=== PATIENT | male | born 1960 | race Hispanic/Latino ===

== ENCOUNTER 2020-04-26 20:21 | Emergency (ER) | payer MEDICARE ==
[~2020-04-26] VITALS: Ht 165.1 cm; Wt 70.8 kg
[2020-04-26] MEDS ORDERED: IBUPROFEN 600 MG TAB PO STA (22:58)
[2020-04-26] MEDS ORDERED: IBUPROFEN600 MG PO (23:05)
[2020-04-26] MEDS ORDERED: ULTRAM50 MG PO (23:05)
[2020-04-26] MEDS ORDERED: IBUPROFEN 600 MG TAB ONE (23:07)
--- NOTE | 2020-04-26 23:09 | Emergency Department Note ---
History of Present Illnes History of Present Illness Chief Complaint: left ankle pain s/p inversion History of Present Illness This is a 59 year old male . Historian: Patient Arrival Mode: Car History limited by: condition of the patient (normal) Data Entry Email Processor Required: No Onset (how long ago): hour(s) (3) Location: left ankle Quality: sharp Radiation: Reports non-radiation Severity: moderate Onset quality: sudden Duration (how long): hour(s) (2) Timing of current episode: constant Progression: worsening Chronicity: new Context: Reports trauma/injury; Denies recent illness, Denies recent surgery, Denies recent immobilization, Denies recent travel, Denies new medications, Denies hx of DVT/PE, Denies non- compliance w/ medications Relieving factors: rest Exacerbating factors: movement Associated symptoms: Reports denies other symptoms Treatments prior to arrival: none Past Medical/Family History Physician Review I have reviewed the patient's past medical and family history. Any updates have been documented here. Past Medical History Recent Fever: No Clinical Suspicion of Infectio: No New/Unexplained Change in Ment: No Past Medical History: Hypertension, Diabetes, NM, ESRD Past Surgical History: Pacer/AICD Social History Smoking Cessation: Never Smoker Counseling Performed: No Alcohol Use: None Any Illegal Drug Use: No Physically hurt or threatened: No Other Any Pre-Existing Lines (PICC,: Yes (AV GRAFT LEFT) Review of Systems Review of Systems Constitutional: Reports no symptoms EENTM: Reports no symptoms Cardiovascular: Reports no symptoms Respiratory: Reports no symptoms Gastrointestinal: Reports no symptoms Genitourinary: Reports no symptoms Musculoskeletal: Reports as per HPI Integumentary: Reports no symptoms Neurological: Reports no symptoms Psychological: Reports no symptoms Endocrine: Reports no symptoms Hematological/Lymphatic: Reports no symptoms Review of other systems: All other systems negative Physical Exam Related Data Allergies: Coded Allergies: Sulfa (Sulfonamide Antibiotics) (Verified Allergy, Unknown, 04/26/20) Triage Vital Signs Vital Signs Date Time Temp Pulse Resp B/P (MAP) Pulse Ox O2 Delivery O2 Flow Rate FiO2 04/26/20 21:20 98.4 73 18 167/78 100 Room Air Vital signs reviewed: Yes Physical Exam CONSTITUTIONAL Constitutional: Present well-developed, Present well-nourished HENT HENT: Present normocephalic, Present atraumatic, Present oropharynx clear/moist, Present nose normal HENT L/R: Present left ext ear normal, Present right ext ear normal EYES Eyes: Reports PERRL, Reports conjunctivae normal NECK Neck: Present ROM normal, Present supple PULMONARY Pulmonary: Present effort normal, Present breath sounds normal CARDIOVASCULAR Cardiovascular: Present regular rhythm, Present heart sounds normal, Present capillary refill normal, Present normal rate GASTROINTESTINAL Abdominal: Present soft, Present nontender, Present bowel sounds normal GENITOURINARY Genitourinary: Present exam deferred SKIN Skin: Present warm, Present dry MUSCULOSKELETAL Musculoskeletal: Present tenderness (left ankle), Present swelling, Present other (decrease farom, +nvi) NEUROLOGICAL Neurological: Present alert, Present oriented x 3, Present no gross motor or sensory deficits PSYCHOLOGICAL Psychological: Present mood/affect normal, Present judgement normal Results Imaging Imaging results reviewed: Yes Impressions left ankle xray neg Critical Care Time Comments [place] [employer] overdose risk [id number] Assessment & Plan Medical Decision Making MDM SEE BELOW Assessment & Plan Final Impression: (1) Left ankle sprain (2) Sprain of left foot Depart Disposition: HOME, SELF-CARE Last Vital Signs Date Time Temp Pulse Resp B/P (MAP) Pulse Ox O2 Delivery O2 Flow Rate FiO2 04/26/20 21:20 98.4 73 18 167/78 100 Room Air Home Meds Active Scripts Tramadol Hcl (ULTRAM) 50 Mg Tablet, 50 MG PO Q6H PRN for MODERATE PAIN (4-6), #15 TAB TAKE AFTER IBUPROFEN TO CONTROL PAIN IF NEED BE Prov:HOMERO BARNHART 04/26/20 Ibuprofen (IBUPROFEN) 600 Mg Tablet, 600 MG PO Q6H PRN for MODERATE PAIN (4-6), #40 TAB Prov:HOMERO BARNHART 04/26/20 Medications in the ED Ibuprofen 600 mg ONCE STAT PO ; Start 04/26/20 at 22:58; Stop 04/26/20 at 22:59; Status UNV HOMERO BARNHART Apr 26, 2020 23:09
--- NOTE | 2020-04-27 00:09 | Diagnostic Imaging Report ---
LEFT ANKLE 3VIEW LT - HOPD - 3 views HISTORY: Pain. COMPARISON: None available. FINDINGS: Bones: Apparent cortical discontinuity at the posterior calcaneus. Otherwise, no acute fracture of the ankle. Osseous alignment is within normal limits. Joints: The joint spaces are well-maintained. Soft tissues: Vascular calcifications. IMPRESSION: Apparent cortical discontinuity at the posterior calcaneus. Findings could represent old trauma, but acute fracture is not excluded. Correlate for point tenderness to determine need for CT evaluation. Otherwise, no acute fracture of the ankle. Signed by: Anam Bautista MD on 04/27/2020 12:06 AM
--- OUTSIDE RECORDS SUMMARY | 2020-04-27 00:17 | XMS REPORT | Clinical Summary ---
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 Sulfa (Sulfonamide Rash, Itching Medium 04/23/2016 Antibiotics) Medications End Date Status Medication Sig Dispensed Refills Start Date Active naftifine (NAFTIN) 1 % Apply to 90 g 2 topical creamIndications: affected area 1 OM (onychomycosis), Tinea daily. pedis Active blood glucose meter Use as 1 Kit 0 (PRECISION XTRA directed.. 4 GLUCOMETER)Indications: Diabetes mellitus Active blood glucose test Check glucose 100 Each 10 05/06 stripsIndications: twice daily 4 Diabetes mellitus Active atorvastatin (LIPITOR) 40 Take 1 tablet 30 tablet 10 mg tabletIndications: by mouth at 5 Hyperlipidemia LDL goal < bedtime 100 nightly For cholesterol. Active blood glucose (PRECISION Check glucose 100 Each 5 XTRA TEST STRIPS) test 2 times daily 5 stripsIndications: Diabetes mellitus type II, controlled Active blood glucose test 2 times 50 Each 3 02/05/10 03 stripsIndications: weekly to 6 Diabetes mellitus due to test blood underlying condition with sugar. hyperglycemia Active carvedilol (COREG) 3.125 Take 1 tablet 180 tablet 3 mg tabletIndications: by mouth 2 8 Renovascular hypertension times daily (with meals) For blood pressure. Romanian label. Active blood glucose Use as 1 Kit 0 meterIndications: Type II directed.. 8 diabetes mellitus, well controlled Active lancets 28 Use 2 times 100 Each gaugeIndications: Type II weekly as 8 diabetes mellitus, well directed. controlled Active blood glucose test 2 times 50 Each 01 stripsIndications: Type weekly Use 2 8 II diabetes mellitus, times weekly well controlled (once per day on Mon,Thurs) to test blood sugar. Active DILTIAZEM HCL COATED Take 180 mg 0 BEADS 180 mg 24 hr by mouth 2 capsule times daily. Active apixaban (ELIQUIS) 2.5 mg Take 2.5 mg 0 tablet by mouth 2 times daily. 10/08/2019 Discontinued (Therapy comple jocelin) white petrolatum Apply to 30 g 0 (VASELINE) topical affected area 6 jellyIndications: Macular 3 times daily erythematous rash as needed for dry skin. 10/08/2019 Discontinued (Therapy comple jocelin) sevelamer carbonate Take 2 180 tablet 10 (RENVELA) 800 mg tablet tablets by 6 mouth 3 times daily with meals. Therapeutic substitution for Renagel per p &t 10/08/2019 Discontinued (Alternate ther apy) amLODIPine (NORVASC) 10 Take 1 tablet 90 tablet 3 mg tabletIndications: by mouth 8 Renovascular hypertension daily For blood pressure. Active Problems Problem Noted Date Pure hypercholesterolemia 12/20/2016 Type II diabetes mellitus, well controlled 7 ESRD (end stage renal disease) on dialysis 6 Renovascular hypertension 05/08/2016 Diabetes type 2, uncontrolled 04/27/2016 Essential hypertension 04/27/2016 Hyperlipidemia 04/27/2016 Anemia of chronic disease 04/27/2016 Proliferative diabetic retinopathy with macular edema associated with type 02/06/2016 2 diabetes mellitus Anemia of renal disease 10/27/2015 Anemia of chronic renal failure, stage 5 09/14/2015 TRD (traction retinal detachment) 06/02/2015 History of vitrectomy 06/02/2015 Nuclear sclerotic cataract of both eyes 06/02/2015 Vitamin D deficiency 12/27/2014 Diabetes mellitus 06/17/2014 Vitreous hemorrhage 06/17/2014 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 014 HTN (hypertension) 01/12/2011 Hyperlipidemia with target LDL less than 100 011 Plantar fasciitis 12/13/2010 Proteinuria Secondary hyperparathyroidism, renal Paroxysmal atrial fibrillation Exfoliative dermatitis Hemodialysis catheter malfunction Complications, dialysis, catheter, [facility] anical Resolved Problems Problem Noted Date Resolved Date Preop exam for internal medicine 01/31/201610/08 Diabetes mellitus due to underlying condition with hypergly cemia 01/11/2016 10/08/2019 Proliferative diabetic retinopathy 06/17/201402/2020 ESRD (end stage renal disease) 10/08/2019 Encounters Care Team Description Date Type Specialty Chichi Mon MD Macular edema (Primary Dx); ESRD (end stage renal disease) on dialysis; Paroxysmal atrial fibrillation; H/O diabetes mellitus 10/08/2019 Office Visit Family Practice after 04/27/2019 Immunizations Name Administration Dates Next Due Influenza <Unspecified> 04/02/2019 Influenza Vaccine 07/14/2015, 07/01/2014 PPV 23 Pneumococcal 12/13/2010 Polysaccaride Tdap Tetanus, diphtheria, 11/29/2014 acellular pertussis Vaccine Family History Medical History Relation Name Comments Family Medical History Other Unknown Relation Name Status Comments Brother Alive 2 Father (Age 75) Mother (Age 80) Other Sister Alive 1 Social History Date Tobacco Use Types Packs/Day Years Used Never Smoker Smokeless Tobacco: Never Used Drinks/Week oz/Week Comments Alcohol Use 0 Standard drinks or equivalent 0.0 No Food Insecurity Answer Date Recorded Within the past 12 months, you worried that your Never everardo e 05/01/2018 food would run out before you got money to buy more. Within the past 12 months, the food you bought Never true 05/01/2018 just didn't last and you didn't have mo efrain to get more. Sex Assigned at Date Recorded Not on file Industry Job Start Date Occupation Not on file Not on file Not on file Travel End Travel History Travel Start No recent travel history available. Last Filed Vital Signs Reading Time Taken Comments Vital Sign 142/70 10/08/2019 10:11 AM [facility] Manual BP R arm Blood Pressure 72 10/08/2019 9:48 AM [facility] Pulse 36.9 C (98.4 F) 10/08/2019 9:48 AM [facility] Temperature - - Respiratory Rate - - Oxygen Saturation - - Inhaled Oxygen Concentration 70.5 kg (155 lb 8 oz) 10/08/2019 9:48 AM [facility] Weight 158.5 cm (5' 2.4") 10/08/2019 9:48 AM [facility] Height 28.08 10/08/2019 9:48 AM [facility] Body Mass Index Plan of Treatment Health Maintenance Due Date Last Done Comments DM Retinal Exam (Yearly) 03/27/2019 03/27/2018, 01/07/2017, 10/24/2016, Additional history exists Colonoscopy 3yr 11/01/2019 10/31/2016 (Previously completed - External) DM Foot Exam (Yearly) 10/08/2020 10/08/2019, 01/31/2018, 11/29/2014 DM HGBA1C (Yearly) 10/08/2020 10/08/2019, 02/07/2018, 02/14/2017, Additional history exists DM Microalbumin Urine 10/08/2020 10/08/2019, Scrn (Yearly) 10/08/2019, 05/01/2018, Additional history exists Implants Device Identifier Shelf Expiration Date Model / Serial / L ot Implanted Type Area Manufactur er 05/05/2018 [id number] / [id number] / na Implant Eye Iol Intraoccular Lens Implant Left: Eye(s) ADVANCED (Ppk-3000-01) - [id number] eye MEDICAL Implanted: Qty: 1 on 02/22/2016 by [employer] Tammi Montenegro MD at [facility] 05/03/2015 / [facility] Left: Eye(s) Implanted: Qty: 1 on 01/21/2015 at [facility] Procedures Comments Procedure Name Priority Date/Time Associated Diag nosis HEMOGLOBIN A1C Routine 10/08/2019 H/O diabetes me llitus 11:06 AM [facility] LIVER PROFILE Routine 10/08/2019 H/O diabetes me llitus 11:06 AM [facility] LIPID PROFILE Routine 10/08/2019 H/O diabetes me llitus 11:06 AM [facility] DIABETIC FOOT EXAM Routine 10/08/2019 H/O diabete s mellitus 10:26 AM [facility] after 04/27/2019 Results * Hemoglobin A1C (10/08/2019 11:06 AM [facility]) Hemoglobin A1c 6.0 4.3 - 6.1 % [facility] Estimated 126 (H) 70 - 110 mg/dL [facility] Average Glucose LAB[facility]ORY Specimen Blood Performing Organization Address [facility] one Number [facility] [address] [place] [address] [phone] * Liver Profile (10/08/2019 11:06 AM [facility]) [facility] Total Protein 7.7 6.0 - 8.3 g/dL [facility] Bilirubin, 0.7 0.2 - 1.2 mg/dL [facility] Total [facility] Alkaline 157 (H) 34 - 104 U/L [facility] Phosphatase [facility] AST 18 13 - 39 U/L [facility] Direct 0.2 0.0 - 0.2 mg/dL [facility] Bilirubin [facility] ALT 13 7 - 52 U/L [facility] Albumin 4.4 4.2 - 5.5 g/dL [facility] Specimen Blood Performing Organization Address [facility] one Number [facility] [address] [place] [address] * Lipid Profile (10/08/2019 11:06 AM [facility]) [facility] Cholesterol 119.0 <=200.0 mg/dL [facility] Triglyceride 105 <150 mg/dL [facility] HDL 37.0 See Reference Range [facility] Narrative. mg/dL [facility] LDL 61 <100 mg/dL [facility] Comment: [facility] Optimal: < 100.0 mg/dL Near Optimal: 120-129 mg/dL Borderline: 130-159 mg/dL High: 160-189 mg/dL Very High: >=190 mg/dL Patient No [facility] Fasting? LABORATORY Specimen Blood Narrative Performed At Patient is not fasting. For a triglyceride result gre ater than 440 mg/dL, [facility] consider re-testing when the patient is in a fasting state. Performing Organization Address [facility] one Number [facility] [address] [place] [address] * DIABETIC FOOT EXAM (10/08/2019 10:26 AM [facility]) Narrative Performed At Chichi Mon MD 10/08/2019 11: 03 AM Diabetic Foot Exam was performed at 10/08 10:52 AM. Right foot sensation is normal, right foot pulses are absent, right foot appearance is abnormal. Left foot sensation is n ormal, left foot pulses are absent, left foot appearance is abnormal. after 04/27/2019 Insurance Type Payer Benefit Subscriber ID Effective Phone Address Plan / Dates Group MEDICARE MEDICARE xxxxxxxxxxx 2016- [phone] [address] PART A & B Present [id number] [place] [phone] Advance Directives Date Inactivated Comments Code Status Date Activated 07/11/2016 10:18 PM Full Code 07/11/2016 10:00 AM 05/01/2016 5:45 PM Full Code 04/18/2016 11:32 AM 01/11/2016 6:56 PM Full Code 01/10/2016 12:13 AM 12/12/2015 5:47 PM Full Code 12/10/2015 5:06 AM 08/20/2015 2:46 PM Full Code 08/19/2015 4:36 AM
--- OUTSIDE RECORDS SUMMARY | 2020-04-27 00:18 | XMS REPORT | Clinical Summary ---
Author Author MARY [facility] Organization [facility] Address Unknown Phone Unavailable Care Team Providers Care Airflight Attendants Supervisor Name Role Phone Chichi Mon PCP Allergies Comments Active Allergy Reactions Severity Noted Date Sulfa (Sulfonamide Rash Low 12/11/2016 Antibiotics) Medications End Date Status Medication Sig Dispensed Refills Start Date Active apixaban (ELIQUIS) 2.5 mg Take 2.5 mg 0 Tab tablet by mouth 2 (two) times daily. Active dilTIAZem (CARDIZEM CD) Take 180 mg 0 180 MG 24 hr capsule by mouth 2 (two) times daily. Active carvediloL (COREG) 12.5 Take 12.5 mg 0 MG tablet by mouth 2 (two) times daily with breakfast and dinner. 03/17/2020 Discontinued carvedilol (COREG) 3.125 Take 12.5 mg 0 MG tablet by mouth 2 (two) times daily with breakfast and dinner . 03/17/2020 Discontinued amiodarone (PACERONE) 200 Take 200 mg 0 MG tablet by mouth daily. 03/17/2020 Discontinued acetaminophen-codeine Take 1 tablet 0 (TYLENOL #3) 300-30 mg by mouth per tablet every 4 (four) hours as needed for Pain. 03/17/2020 Discontinued aspirin 81 MG EC tablet Take 81 mg by 0 mouth daily. Active Problems Problem Noted Date Pre-transplant evaluation for ESRD (end stage renal d isease) 03/19/2017 Encounters Care Team Description Date Type Specialty Jovita Vasquez 04/01/2020 Documentation Transplant Laurie Salas MD ESRD (end stage renal disease) on dialys is (HCC); Awaiting transplantation of kidney; Mitral annular calcification; Pericardial effusion; Pleural effusion 03/17/2020 Hospital Cardiology Encounter Laurie Salas MD ESRD (end stage renal disease) on dialys is (HCC); Awaiting transplantation of kidney 03/17/2020 Hospital Radiology Encounter Laurie Salas MD Pandya, Aashish Mahesh, MD ESRD (end stage renal disease) (HCC) (Pr imary Dx) 03/17/2020 Evaluation Transplant Bharati Londono MD 03/17/2020 Evaluation Transplant Chichi 03/17/2020 Outside Orders Radiology Natalia Campos COVID19 screening 03/16/2020 Telephone Transplant Jovita Vasquez 03/16/2020 Documentation Transplant Katina Luong RN ESRD (end stage renal disease) on dialys is (HCC) (Primary Dx); Awaiting transplantation of kidney; Mitral annular calcification; Pericardial effusion; Pleural effusion 01/29/2020 Orders Only Transplant Jovita Vasquez PSA 12/17/2019 Telephone Transplant Jovita Vasquez 12/17/2019 Documentation Transplant Sim, Na Y 12/09/2019 Documentation Transplant Katina Luong, MAGDALENA Awaiting transplantation of kidney (Prim desmond Dx) 09/15/2019 Orders Only Transplant after 04/27/2019 Social History Date Tobacco Use Types Packs/Day Years Used Never Smoker Smokeless Tobacco: Never Used Alcohol Use Drinks/Week oz/Week Comments No Sex Assigned at Date Recorded Not on file Industry Job Start Date Occupation Not on file Not on file Not on file Travel End Travel History Travel Start No recent travel history available. Last Filed Vital Signs Time Taken Vital Sign Reading 03/17/2020 1:38 PM CDT Blood Pressure 179/94 03/17/2020 1:38 PM CDT Pulse 64 03/17/2020 1:38 PM CDT Temperature 36.6 C (97.8 F) 03/17/2020 1:38 PM CDT Respiratory Rate 16 03/17/2020 1:38 PM CDT Oxygen Saturation 100% - Inhaled Oxygen - Concentration 03/17/2020 1:38 PM CDT Weight 69.2 kg (152 lb 9.6 oz) 03/17/2020 1:38 PM CDT Height 160 cm (5' 3") 03/17/2020 1:38 PM CDT Body Mass Index 27.03 Plan of Treatment Health Maintenance Due Date Last Done Comments PNEUMOCOCCAL VACCINE 2-64 1966 YEARS AT RISK (1 of 3 - PCV13) MEDICARE ANNUAL WELLNESS 07/04/2017 (YEAR 2 or FIRST YEAR if no IPPE) INFLUENZA VACCINE (#1) 2020 LIPID PANEL 10/08/2024 10/08/2019, 017 COLON CANCER SCREENING 02/04/2027 02/04/2017 COLONOSCOPY Procedures Comments Procedure Name Priority Date/Time Associated Diag nosis 2D ECHO W/ DOPPLER Routine 03/17/2020 ESRD (end s tage renal (CW/PW/COLOR) 2:11 PM CDT disease) on dialysi s (HCC) Awaiting transplantation of kidney Mitral annular calcification Pericardial effusion Pleural effusion US ABDOMEN COMPLETE Routine 03/17/2020 ESRD (end stage renal 1:29 PM CDT disease) on dialysis (HCC) Awaiting transplantation of kidney FLOW PRA CLASS II WITH Routine 03/17/2020 Awaitin g transplantation REFLEX TO ANTIBODY 12:35 PM CDT of kidney SPECIFICITY FLOW PRA CLASS I WITH Routine 03/17/2020 Awaiting transplantation REFLEX TO ANTIBODY 12:35 PM CDT of kidney SPECIFICITY after 04/27/2019 Results * 2D Echo W/Doppler(CW/PW/Color) (03/17/2020 2:11 PM CDT) Ejection Fraction [facility] ECHO HEARTLAB [facility] Specimen Narrative Performed At Transthoracic Echocardiography Report (TTE) [facility] ECH O HEARTLAB Demographics [facility] Patient Name ISRAEL ALEMAN, Date of Study 03/17/2020 KARLEE Garrett [id number] GenderMale Visit Number [id number] RaceUnk nown [id number] Room Number Number Date of Birth1960 Referring Physician Maritza Matthews Age59 year(s) Sales Engagement Manager Tamika leger Physician Procedure Type of Study TTE procedure:2DECHO W DO PPLER(CW/PW/COLOR) (Routine) Indications:Pre-surgical evaluation of organ transplant. Clinical History Afib, CMP, Dm, ESRD, HLD, HTN, L/R Cath (03/19/17) Contrast Medium: New Item. Height: 63 inches Weight: 68.95 kg (152 lbs) BSA: 1.72 m^2 BMI: 26.93 kg/m^2 HR: 84 bpm BP: 178/84 mmHg Summary 1. The left ventricle is chamber size ( by vol index) is severely enlarged. Mild concentric LV hypertrophy. All of the LV segments contract normally . LVEF by Fontana's method of disk assess ment is normal (55-60%) . LA size is moderately enlarged (42-48 ml/m2) . 2. RV chamber size is mildly enlarged. Global RV systolic function is normal. Estimated peak systolic PA pres sure is 45-50 mmHg (mild pulmonary hypertension) . 3. Moderate mitral annular calcificatio n. Mild mitral regurgitation. Previous Study In comparison with the prior exam 2016 the following changes are noted: mildly enlarged RV with moderately rais ed pulmonary pressures. Signature Findings Left Ventricle The left ventricle is chamber size (by vol index) is severely enlarged (male - LVED vol >100ml/m2). Mild concentric LV hypertrophy. All of the LV segments contract normally . LVEF by Fontana's method of disk assessment is normal (55-60%) . Degree of diastolic dysfunction (LAP assessment) is inconclusive due to mitral annular calcification . Left AtriumLA s ize is moderately enlarged (42-48 ml/m2) . Right VentricleRV chamb er size is mildly enlarged . Global RV systolic function is normal . Right Atrium RA siz e is mildly dilated. Atrial SeptumNormal interatrial septum by available views. Aortic Valve Mild A oV cusp thickening. No evidence of aortic regurgitation. Mitral Valve Mild M V leaflet thickening. Mild mitral regurgitation. Moderate mitral annular calcification. Mild mitral regurgitation. Tricuspid ValveMild tri cuspid regurgitation. Estimated peak systolic PA pressure is 45-50 mmHg (mild pulmonary hypertension) . Pulmonic Valve Normal P V structure and function by limited views and Doppler. Aorta Aortic root size (SInus of Valsalva diameter) is normal . PericardiumNo s ignificant pericardial effusion is visualized. IVC/SVC/PA/PV/PleuralThe estimated RA pressure by IVC dynamics 11-15mmHg . Chambers/Structures Left Atrium LA Volume: 72.03 ml LA Area: 23.14 cm^2 LA Vol. Index: 42 ml/m^2 Left Ventricle LVIDd: 4.7 cm LVEDV:100.24 ml LVIDs: 2.91 cm LVESV:24.68 ml LV Septum Diastolic: 1.12 cm LVEF 2D Cube: 75.6 % LV PW Diastolic: 1.14 cm LVEDV Fontana's:72.37 ml LV FS: 38.1 % LVESV Fontana's:29.99 ml LVEF Fontana's: 58.6 % LVEDVI: 42 ml/m^2 LVESVI: 17 ml/m^2 LVOT Diameter: 1.87 cm LVEF: 75.4 % Right Atrium RA Vol. (Sngl Plane): 50.03 ml Right Ventricle TAPSE: 1.62 cm Aorta Ao Root S of Tiffanie.: 3.53 cm Doppler/Quantitative Measurements Mitral Valve MV Peak E-Wave: 1.73 m/s MV Peak A-Wave: 0.64 m/s E/A Ratio: 2.71 Mean Velocity: 0.81 m/s Peak Gradient: 12.01 mmHg Mean Gradient: 3.17 mmHg Deceleration Time: 229.5 msec Area (continuity): 1.64 cm^2 MV VTI: 39.49 cm MV Fly. Peak: 1.58 m/s Aortic Valve Peak Velocity: 1.45 m/s Mean Velocity: 0.95 m/s Peak Gradient: 8.39 mmHg Mean Gradient: 4.08 mmHg AV Area (continuity): 2.03 cm^2 AV VTI: 31.88 cm AV DVI: 0.74 LVOT Peak Velocity: 0.93 m/s Peak Gradient: 3.44 mmHg Mean Velocity: 0.63 m/s Mean Gradient: 1.83 mmHg LVOT Diameter: 1.87 cm LVOT VTI: 23.54 cm LVOT Area: 2.75 cm^2 LVOT SV:64.62 ml LVOT CO: 5.43 l/min LVOT CI: 3.16 l/min/m^2 Tricuspid Valve TR Velocity: 2.99 m/s TR Gradient: 35.87 mmHg Procedure Note Interface, External Ris In - 03/17/2020 4:00 PM CDT Transthoracic Echocardiography Report (TTE) Demographics Patient Name ISRAEL ALEMAN, Date of Study 03/17/2020 WILLIE Gender Male Visit Number [id number] Race Unknown Room Number Number Date of 1960 Referring Physician Maritza Matthews Age 59 year(s) Sales Engagement Manager Tamika Pizarro Interpreting Tashi Ontiveros Physician Procedure Type of Study TTE procedure:2DECHO W DOPPLER(CW/PW/COLOR) (Routine) Indications:Pre-surgical evaluation of organ transplant. Clinical History Afib, CMP, Dm, ESRD, HLD, HTN, L/R Cath (03/19/17) Contrast Medium: New Item. Height: 63 inches Weight: 68.95 kg (152 lbs) BSA: 1.72 m^2 BMI: 26.93 kg/m^2 HR: 84 bpm BP: 178/84 mmHg Summary 1. The left ventricle is chamber size (by vol index) is severely enlarged. Mild concentric LV hypertrophy. All of the LV segments contract normally . LVEF by Fontana's method of disk assessment is normal (55-60%) . LA size is moderately enlarged (42-48 ml/m2) . 2. RV chamber size is mildly enlarged. Global RV systolic function is normal. Estimated peak systolic PA pressure is 45-50 mmHg (mild pulmonary hypertension) . 3. Moderate mitral annular calcification. Mild mitral regurgitation. Previous Study In comparison with the prior exam 2017 the following changes are noted: mildly enlarged RV with moderately raised pulmonary pressures. Signature Findings Left Ventricle The left ventricle is chamber size (by vol index) is severely enlarged (male - LVED vol >100ml/m2). Mild concentric LV hypertrophy. All of the LV segments contract normally . LVEF by Fontana's method of disk assessment is normal (55-60%) . Degree of diastolic dysfunction (LAP assessment) is inconclusive due to mitral annular calcification . Left Atrium LA size is moderately enlarged (42-48 ml/m2) . Right Ventricle RV chamber size is mildly enlarged . Global RV systolic function is normal . Right Atrium RA size is mildly dilated. Atrial Septum Normal interatrial septum by available views. Aortic Valve Mild AoV cusp thickening. No evidence of aortic regurgitation. Mitral Valve Mild MV leaflet thickening. Mild mitral regurgitation. Moderate mitral annular calcification. Mild mitral regurgitation. Tricuspid Valve Mild tricuspid regurgitation. Estimated peak systolic PA pressure is 45-50 mmHg (mild pulmonary hypertension) . Pulmonic Valve Normal PV structure and function by limited views and Doppler. Aorta Aortic root size (SInus of Valsalva diameter) is normal . Pericardium No significant pericardial effusion is visualized. IVC/SVC/PA/PV/Pleural The estimated RA pressure by IVC dynamics 11-15mmHg . Chambers/Structures Left Atrium LA Volume: 72.03 ml LA Area: 23.14 cm^2 LA Vol. Index: 42 ml/m^2 Left Ventricle LVIDd: 4.7 cm LVEDV:100.24 ml LVIDs: 2.91 cm LVESV:24.68 ml LV Septum Diastolic: 1.12 cm LVEF 2D Cube: 75.6 % LV PW Diastolic: 1.14 cm LVEDV Fontana's:72.37 ml LV FS: 38.1 % LVESV Fontana's:29.99 ml LVEF Fontana's: 58.6 % LVEDVI: 42 ml/m^2 LVESVI: 17 ml/m^2 LVOT Diameter: 1.87 cm LVEF: 75.4 % Right Atrium RA Vol. (Sngl Plane): 50.03 ml Right Ventricle TAPSE: 1.62 cm Aorta Ao Root S of Tiffanie.: 3.53 cm Doppler/Quantitative Measurements Mitral Valve MV Peak E-Wave: 1.73 m/s MV Peak A-Wave: 0.64 m/s E/A Ratio: 2.71 Mean Velocity: 0.81 m/s Peak Gradient: 12.01 mmHg Mean Gradient: 3.17 mmHg Deceleration Time: 229.5 msec Area (continuity): 1.64 cm^2 MV VTI: 39.49 cm MV Fly. Peak: 1.58 m/s Aortic Valve Peak Velocity: 1.45 m/s Mean Velocity: 0.95 m/s Peak Gradient: 8.39 mmHg Mean Gradient: 4.08 mmHg AV Area (continuity): 2.03 cm^2 AV VTI: 31.88 cm AV DVI: 0.74 LVOT Peak Velocity: 0.93 m/s Peak Gradient: 3.44 mmHg Mean Velocity: 0.63 m/s Mean Gradient: 1.83 mmHg LVOT Diameter: 1.87 cm LVOT VTI: 23.54 cm LVOT Area: 2.75 cm^2 LVOT SV:64.62 ml LVOT CO: 5.43 l/min LVOT CI: 3.16 l/min/m^2 Tricuspid Valve TR Velocity: 2.99 m/s TR Gradient: 35.87 mmHg Performing Organization Address City/State/[facility] one Number SLE ECHO HEARTLAB [facility] * US abdomen complete (03/17/2020 1:29 PM CDT) Specimen Narrative Performed At FINAL REPORT [facility] TECHNIQUE: Grayscale ultrasound of the abdomen. INDICATION: 59-year-old man for renal t ransplant evaluation. COMPARISON: Abdomen ultrasound 7. FINDINGS: MIDLINE VASCULATURE: Visualized inferio r vena cava is patent. Main portal vein is patent. Maximum visualiz ed aortic diameter is 2.3 cm. LIVER: Liver is normal in size and echo genicity with smooth contour. No focal lesion. BILIARY: Gallbladder: No gallstones. 0.4 cm poly p in the gallbladder, not clearly visualized on prior exam. No ga llbladder wall thickening, pericholecystic fluid, or distention. R eported negative sonographic Monk sign. Common bile duct measures 0.5 cm, withi n normal limits. No intrahepatic biliary ductal dilatation. PANCREAS: Visualized portions of the pa ncreas are unremarkable. SPLEEN: No splenomegaly. PERITONEUM: No free fluid. KIDNEYS: Right kidney measures 10.4 x 3 .5 x 4.4 cm with cortical thickness of 1 cm. Left kidney measures 9.7 x 4.4 x 3.4 cm with cortical thickness of 1.4 cm. No hydron ephrosis. No sonographically evident mass or cyst. Suspected cortica l scarring in the right interpolar region. IMPRESSION: No sonographically evident renal mass o r cyst. 0.4 cm gallbladder polyp. Given its sma ll size, no follow-up imaging recommended. Signed: Monet Wu MD Report Verified Date/Time: 0 15:50:30 Reading Location: [address] Reading Room Procedure Note Interface, External Ris In - 03/17/2020 3:52 PM CDT FINAL REPORT TECHNIQUE: Grayscale ultrasound of the abdomen. INDICATION: 59-year-old man for renal transplant evaluation. COMPARISON: Abdomen ultrasound 12/25/2016. FINDINGS: MIDLINE VASCULATURE: Visualized inferior vena cava is patent. Main portal vein is patent. Maximum visualized aortic diameter is 2.3 cm. LIVER: Liver is normal in size and echogenicity with smooth contour. No focal lesion. BILIARY: Gallbladder: No gallstones. 0.4 cm polyp in the gallbladder, not clearly visualized on prior exam. No gallbladder wall thickening, pericholecystic fluid, or distention. Reported negative sonographic Monk sign. Common bile duct measures 0.5 cm, within normal limits. No intrahepatic biliary ductal dilatation. PANCREAS: Visualized portions of the pancreas are unremarkable. SPLEEN: No splenomegaly. PERITONEUM: No free fluid. KIDNEYS: Right kidney measures 10.4 x 3.5 x 4.4 cm with cortical thickness of 1 cm. Left kidney measures 9.7 x 4.4 x 3.4 cm with cortical thickness of 1.4 cm. No hydronephrosis. No sonographically evident mass or cyst. Suspected cortical scarring in the right interpolar region. IMPRESSION: No sonographically evident renal mass or cyst. 0.4 cm gallbladder polyp. Given its smal l size, no follow-up imaging recommended. Signed: Monet Wu MD Report Verified Date/Time: 03/17/2020 15:50:30 Reading Location: [address] Radiology Reading Room Performing Organization Address [facility] one Number GE RIS * FLOW PRA CLASS II WITH REFLEX TO ANTIBODY SPECIFICITY (03/17/2020 12:35 PM CDT) Flow Class II Percent 3 [facility] NG Positive Specimen Blood Narrative Performed At Disclaimer: [facility] This test was developed and its perform ance characteristics determined by the [facility]. It has not been cleared or approved by the U.S. Food and Drug Administration. The FDA has determined that such clearance or approval is not necessary. This test is used for clinic al purposes. It should not be regarded as investigational or for research. This l aboratory is certified under the Clinical Laboratory Improvement Amendments of 19 88 (CLIA-88) as qualified to perform high complexity clinical laboratory testing. Performing Organization Address [facility] one Number [facility] ONE Akbar Olson, MS: [id number], [place] [address] CLIA#[id number] CAP#[id number] UNOS#[id number] * FLOW PRA CLASS I WITH REFLEX TO ANTIBODY SPECIFICITY (03/17/2020 12:35 PM CDT) Flow Class I Percent 0 [facility] HLA TESTIN G Positive Specimen Blood Narrative Performed At Disclaimer: [facility] This test was developed and its perform ance characteristics determined by the [facility]. It has not been cleared or approved by the U.S. Food and Drug Administration. The FDA has determined that such clearance or approval is not necessary. This test is used for clinic al purposes. It should not be regarded as investigational or for research. This l aboratory is certified under the Clinical Laboratory Improvement Amendments of 19 88 (CLIA-88) as qualified to perform high complexity clinical laboratory testing. Performing Organization Address [facility] one Number [facility] ONE Akbar Olson, MS: [id number], [place] [id number] CLIA#[id number] CAP#[id number] UNOS#[id number] after 04/27/2019 Insurance Payer Benefit Subscriber ID Type Phone Address Plan / Group MEDICARE MEDICARE A xxxxxxxxxxx Medicare B MEDICAID MEDICAID xxxxxxxxx [place] [id number] Advance Directives For more information, please contact: [facility] [address], [place] [id number] Date Inactivated Comments Code Status Date Activated 03/19/2017 8:54 PM Full Code 03/19/2017 10:03 AM This code status was determined by: Patient
--- OUTSIDE RECORDS SUMMARY | 2020-04-27 00:18 | XMS REPORT | Continuity of Care Document ---
Author Author [facility] t Organization [facility] t Address [address] [place] [address] Phone Unavailable Care Team Providers Care Drawbench Operator Name Role Phone Yoana Mon PCP Elvis BARNHART Attphys Unavailable Jovita Vasquez Attphys Unavailable Mraitza QUINTANILLA, SRenato Sullivan Attphys Deloris QUINTANILLA, Bello Chicashish Attphys [phone] Brenda Ritter MD Attphys [phone] Yoana Mon Attphys Natalia Campos Attphys Unavailable Ag NICHOLS, Katina Attphys Unavailable Sim, Y Na Attphys Unavailable Yoana oMn MD Attphys BRENDA RITTER Attphys Unavailable JAYCE FONTANA Attphys Unavailable AMARATUNGE, CHAMINDIKA HARSHINIE Attphys Unavail able Anahy NELSON Attphys Unavailable JAYCE FONTANA Admphys Unavailable AMARATUNGE, CHAMINDIKA HARSHINIE Admphys Unavail able Payers Payer Name Policy Type Policy Number Effective Date Expiration Date S chitraacacia MEDICAREMEDICARE A BxxxxxxxxxxxMedicare xxxxxxxxxxx [facility]IDMED[facility]ID [facility] xxxxxxxxx [facility] MEDICAREMEDICARE PART A & [id number], [place] [address] xxxxxxxxxxx 2016 00:00:00 [facility] Problems Condition Name Condition Details Condition Category Status Onset Date Resolution Date Last Treatment Date Treating Clinician Comments Source Pre-transplant evaluation for ESRD (end stage renal di sease) Pre-transplant evaluation for ESRD (end stage renal disease) Disease Active 2017-03-19 00:00:00 [facility] Pure hypercholesterolemia Pure hypercholesterolemia Disease Ac [facility] 2016-12-20 00:00:00 [facility] Type II diabetes mellitus, well controlled Type II miguelina betes mellitus, well controlled Disease Active 2016-12-20 00:00:00 [facility] ESRD (end stage renal disease) on dialysis ESRD (end s tage renal disease) on dialysis Disease Active 2016-05-08 00:00:00 [facility] Renovascular hypertension Renovascular hypertension Disease Ac tive 2016-05-08 00:00:00 [facility] Diabetes type 2, uncontrolled Diabetes type 2, uncontrolled Disease Active 2016-04-27 00:00:00 [facility] Essential hypertension Essential hypertension Disease Active 2016-04-27 00:00:00 [facility] Hyperlipidemia Hyperlipidemia Disease Active 2016-04-27 00:00:00 [facility] Anemia of chronic disease Anemia of chronic disease Disease Ac ve 2016-04-27 00:00:00 [facility] Proliferative diabetic retinopathy with macular edema associated with type 2 diabetes mellitus Proliferative diabetic retinopathy with macular edema associated with type 2 diabetes mellitus Disease Active 2016-02-06 00:00: 00 [facility] Anemia of renal disease Anemia of renal disease Disease Active 2015-10-27 00:00:00 [facility] Anemia of chronic renal failure, stage 5 Anemia of chr onic renal failure, stage 5 Disease Active 2015-09-14 00:00:00 [facility] danny [facility] TRD (traction retinal detachment) TRD (traction retinal detachme nt) Disease Active 2015-06-02 [facility] History of vitrectomy History of vitrectomy Disease Active 01-09-01 00:00:00 [facility] Nuclear sclerotic cataract of both eyes Nuclear sclerotic ca taract of both eyes Disease Active 2015-06-02 00:00:00 [facility] Vitamin D deficiency Vitamin D deficiency Disease Active 00:00:00 [facility] Diabetes mellitus Diabetes mellitus Disease Active 2014-06-17 00:00:00 [facility] Vitreous hemorrhage Vitreous hemorrhage Disease Active 2014-06-17 00:00 :00 [facility] 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 Retinal h emorrhage due to secondary diabetes Disease Active 2014-05-13 00:00:00 [facility] HTN (hypertension) HTN (hypertension) Disease Active 2011-01-12 00:00:0 0 [facility] Hyperlipidemia with target LDL less than 100 Hyperlipi demia with target LDL less than 100 Disease Active 2011-01-12 00:00:00 [facility] Plantar fasciitis Plantar fasciitis Disease Active 2010-12-13 00:00:00 [facility] Proteinuria Proteinuria Disease Active [facility] Secondary hyperparathyroidism, renal Secondary hyperparathyr oidism, renal Disease Active [facility] Paroxysmal atrial fibrillation Paroxysmal atrial fibrillation Disease Active [facility] Exfoliative dermatitis Exfoliative dermatitis Disease Active [facility] Hemodialysis catheter malfunction Hemodialysis catheter malfunct ion Disease Active [facility] Complications, dialysis, catheter, mechanical Complica tions, dialysis, catheter, mechanical Disease Active [facility] History of Past Illness Condition Name Condition Details Condition Category Status Onset Date Resolution Date Last Treatment Date Treating Clinician Comments Source Preop exam for internal medicine Preop exam for internal medicin e Disease Resolved 2016-01-31 00:00:00 2019-10-08 00:00:00 2019-10-08 07:25:55 [facility] Diabetes mellitus due to underlying condition with hyp erglycemia Diabetes mellitus due to underlying condition with hyperglycemia Disease Reso lved 2016-01-11 00:00:00 2019-10-08 00:00:00 2019-10-08 07:25:44 [facility] Proliferative diabetic retinopathy Proliferative diabetic retino carlene Disease Resolved 2014-06-17 00:00:00 2019-10-08 00:00:00 2019-10-08 07:25:59 [facility] ESRD (end stage renal disease) ESRD (end stage renal disease) Disea se Resolved 2019-10-08 00:00:00 2019-10-08 07:25:47 [facility] Allergies, Adverse Reactions, Alerts Allergy Name Allergy Type Status Severity Reaction(s) Onset Date Inacti ve Date Treating Clinician Comments Source Sulfa (Sulfonamide Antibiotics) Drug Allergy Active Rash 2016-12-11 00:00:00 [facility] Sulfa (Sulfonamide Antibiotics) Propensity to adverse reactions to drug Active Rash, Itching 2016-04-23 00:00:00 Skin ra sh improved after holding Norvasc, Lasix. [facility] Family History Family Member Diagnosis Comments Start Date Stop Date Source Other Family Medical History Unknown [facility] Social History Social Habit Start Date Stop Date Quantity Comments Source Sex Assigned At [facility] Alcohol intake 2019-10-08 00:00:00 2019-10-08 00:00:00 Current non-drinker of alcohol (finding) [facility] History SDOH Food Worry 2018-05-01 00:00:00 2018-05-01 00:00:00 1 [facility] History SDOH Food Scarcity 2018-05-01 00:00:00 2018-05-01 00:00:00 1 [facility] Smoking Status Start Date Stop Date Source Never smoker [facility] Medications Ordered Medication Name Filled Medication Name Start Date Stop Da te Current Medication? Ordering Clinician Indication Dosage Frequency Signature (SIG) Comments Components Source carvediloL (COREG) 12.5 MG tablet 2020-03-17 15:23:17 Yes 12.5mg Take 12.5 mg by mouth 2 (two) times daily with breakfast and dinner. [facility] carvedilol (COREG) 3.125 MG tablet 2020-03-17 15:23:06 202 00:00:00 No 12.5mg Take 12.5 mg by mouth 2 (two) times daily with breakfast and dinner . [facility] aspirin 81 MG EC tablet 2020-03-17 15:22:54 2020-03-17 00:00:00 No 81mg QD Take 81 mg by mouth daily. [facility] amiodarone (PACERONE) 200 MG tablet 2020-03-17 15:22:4 5 2020-03-17 00:00:00 No 200mg QD Take 200 mg by mouth daily. [facility] acetaminophen-codeine (TYLENOL #3) 300-30 mg per tablet 2020-03-17 15:22:36 2020-03-17 00:00:00 No 1{tbl} Take 1 tablet by mouth every 4 (four) hours as needed for Pain. [facility] apixaban (ELIQUIS) 2.5 mg tablet 2019-10-08 10:34:10 Yes 2.5mg Q.5D Take 2.5 mg by mouth 2 times daily. [facility] DILTIAZEM HCL COATED BEADS 180 mg 24 hr capsule 2019-10-08 10:34 :09 Yes 180mg Q.5D Take 180 mg by mouth 2 times daily. [facility] dilTIAZem (CARDIZEM CD) 180 MG 24 hr capsule 2018-11-18 15:30:53 Yes 180mg Q.5D Take 180 mg by mouth 2 (two) times daily. [facility] apixaban (ELIQUIS) 2.5 mg Tab tablet 2018-11-18 15:23:09 Ye s 2.5mg Q.5D Take 2.5 mg by mouth 2 (two) times daily. [facility] blood glucose test strips 2018-02-03 00:00:00 Yes Type II diabetes mellitus, well controlled 2 times weekly Use 2 times weekly (once per day on Sat,) to test blood sugar. [facility] carvedilol (COREG) 3.125 mg tablet 2018-01-31 00:00:00 Yes Renovascular hypertension 3.125mg Take 1 tablet by patrizia th 2 times daily (with meals) For blood pressure. Arabic label. [facility] blood glucose meter 2018-01-31 00:00:00 Yes Type II diabetes mellitus, well controlled Use as directed.. [facility] lancets 28 gauge 2018-01-31 00:00:00 Yes Type II diabetes mellitus, well controlled Use 2 times weekly as directed. [facility] amLODIPine (NORVASC) 10 mg tablet 2018-01-31 00:00:00 2019 00:00:00 No Renovascular hypertension 10mg QD Take 1 tablet by mouth daily For blood pressure. [facility] sevelamer carbonate (RENVELA) 800 mg tablet 2015 00:00:00 2019-10-08 00:00:00 No Take 2 tablets by mouth 3 times daily with meals. Therapeutic substitution for Renagel per p &t [facility] white petrolatum (VASELINE) topical jelly 30 00:00:00 2019-10-08 00:00:00 No Macular erythematous rash Apply to affected area 3 times daily as needed for dry skin. [facility] blood glucose test strips 2016-02-06 00:00:00 Yes Diabetes mellitus due to underlying condition with hyperglycemia 2 times weekly to test blood sugar. [facility] blood glucose (PRECISION XTRA TEST STRIPS) test strips 2015-08-17 00:00:00 Yes Diabetes mellitus type II, controlled Check gluc ose 2 times daily [facility] atorvastatin (LIPITOR) 40 mg tablet 2015-01-03 00:00:00 Yes Hyperlipidemia LDL goal < 100 40mg Take 1 tablet by patrizia th at bedtime nightly For cholesterol. [facility] blood glucose test strips 2014-05-06 00:00:00 Yes Diabetes mellitus Check glucose twice daily [facility] blood glucose meter (PRECISION XTRA GLUCOMETER) 2014-05-05 0 0:00:00 Yes Diabetes mellitus Use as directed.. [facility] naftifine (NAFTIN) 1 % topical cream 2011-01-12 00:00:00 Yes Tinea pedis QD Apply to affected area daily. [facility] Immunizations Ordered Immunization Name Filled Immunization Name Date Status Comments Source Influenza <Unspecified> 2019-04-02 00:00:00 Completed [facility] Influenza Vaccine 2015-07-14 00:00:00 Completed [facility] Tdap Tetanus, diphtheria, acellular pertussis Vaccine 2014-11-29 00:00:00 Completed [facility] Influenza Vaccine 2014-07-01 00:00:00 Completed [facility] PPV 23 Pneumococcal Polysaccaride 2010-12-13 00:00:00 Comp leted [facility] Vital Signs Vital Name Observation Time Observation Value Comments Source Systolic blood pressure 2020-03-17 13:38:00 179 mm[Hg] [facility] Diastolic blood pressure 2020-03-17 13:38:00 94 mm[Hg] [facility] Heart rate 2020-03-17 13:38:00 64 /min [facility] Body temperature 2020-03-17 13:38:00 36.56 Carola [facility] Respiratory rate 2020-03-17 13:38:00 16 /min [facility] Body height 2020-03-17 13:38:00 160 cm [facility] Body weight Measured 2020-03-17 13:38:00 69.219 kg [facility] BMI 2020-03-17 13:38:00 27.03 kg/m2 [facility] Oxygen saturation in Arterial blood by Pulse oximetry 03-17 13:38:00 100 /min [facility] pressure 2019-10-08 10:11:00 142 mm[Hg] Manual BP R arm [facility] Diastolic blood pressure 2019-10-08 10:11:00 70 mm[Hg] Manual BP R arm [facility] Heart rate 2019-10-08 09:48:00 72 /min [facility] Body temperature 2019-10-08 09:48:00 36.89 Carola [facility] Body height 2019-10-08 09:48:00 158.5 cm [facility] Body weight 2019-10-08 09:48:00 70.534 kg [facility] BMI 2019-10-08 09:48:00 28.08 kg/m2 [facility] Procedures Procedure Date / Time Performed Performing Clinician [facility] e 2D ECHO W/ DOPPLER (CW/PW/COLOR) 2020-03-17 14:11:52 Jace Salas [facility] US ABDOMEN COMPLETE 2020-03-17 13:29:00 Laurie Salas [facility] FLOW PRA CLASS I WITH REFLEX TO ANTIBODY SPECIFICITY 2020-03 12:35:00 Bharati Ritter [facility] FLOW PRA CLASS II WITH REFLEX TO ANTIBODY SPECIFICITY 03-17 12:35:00 Bharati Ritter [facility] LIPID PROFILE 2019-10-08 11:06:00 Brenda Mon LIVER PROFILE 2019-10-08 11:06:00 Brenda Mon HEMOGLOBIN A1C 2019-10-08 11:06:00 Brenda Mon DIABETIC FOOT EXAM 2019-10-08 10:26:42 Brenda Mon [facility] Plan of Care Planned Activity Planned Date Details Comments Source Future Scheduled Test 2027-02-04 00:00:00 Screening for cliff gnant neoplasm of colon (procedure) [code = 082364418] [facility] Future Scheduled Test 2024-10-08 00:00:00 Lipid panel (proce dure) [code = 94438166] [facility] Kirtie r [facility] Scheduled Test 2020-10-08 00:00:00 DM Foot Exam (Year ly) [code = DM Foot Exam (Yearly)] [facility] Scheduled Test 2020-10-08 00:00:00 Hemoglobin A1c jake surement (procedure) [code = 14920180] [facility] Scheduled Test 2020-10-08 00:00:00 Urine screening fo r protein (procedure) [code = 793699418] [facility] Scheduled Test 2020-05-03 00:00:00 INFLUENZA VACCINE (#1) [code = INFLUENZA VACCINE (#1)] [facility] Scheduled Test 2019-11-01 00:00:00 Screening for cliff gnant neoplasm of colon (procedure) [code = 566007134] [facility] Scheduled Test 2019-03-27 00:00:00 DM Retinal Exam (Y early) [code = DM Retinal Exam (Yearly)] [facility] Scheduled Test 2017-07-04 00:00:00 MEDICARE ANNUAL WE LLNESS (YEAR 2 or FIRST YEAR if no IPPE) [code = MEDICARE ANNUAL WELLNESS (YEAR 2 or FIRST YEAR if no IPPE)] [facility] Scheduled Test 1966 00:00:00 PNEUMOCOCCAL VACCI NE 2-64 YEARS AT RISK (1 of 3 - PCV13) [code = PNEUMOCOCCAL VACCINE 2-64 YEARS AT RISK (1 of 3 - PCV13)] [facility] Start Date/Time End Date/Time Encounter Type Admission Type [facility] Care Department Encounter ID Source 2019-02-20 18:33:00 2019-02-20 18:33:00 Emergency E [id number] 2019-01-09 19:11:00 2019-01-09 19:11:00 Emergency E [facility] [id number] [facility] 2019-01-03 12:19:00 2019-01-03 12:19:00 Emergency E [facility] [id number] [facility] 2018-07-31 00:00:00 2018-07-31 00:00:00 Outpatient [facility] [id number] [facility] 2018-07-01 00:00:00 2018-07-01 00:00:00 Outpatient [facility] [id number] [facility] 2018-05-01 14:16:40 2018-05-01 14:16:40 Outpatient [facility] [id number] [facility] 2018-04-29 00:00:00 2018-04-29 00:00:00 Outpatient [facility] [id number] [facility] 2018-03-27 11:30:47 2018-03-27 11:30:47 Outpatient [facility] [id number] [facility] 2018-03-27 10:45:09 2018-03-27 10:45:09 Outpatient [facility] [id number] [facility] 2018-02-07 09:01:40 2018-02-07 09:01:40 Outpatient [facility] [id number] [facility] 2018-01-31 15:20:32 2018-01-31 15:20:32 Outpatient [facility] [id number] [facility] 2017-05-14 00:00:00 2017-05-14 00:00:00 Outpatient [facility] [id number] [facility] 2017-03-13 00:00:00 2017-03-13 00:00:00 Outpatient [facility] [id number] [facility] 2017-02-14 07:31:15 2017-02-14 07:31:15 Outpatient [facility] [id number] [facility] 2017-01-30 11:45:57 2017-01-30 11:45:57 Outpatient [facility] [id number] [facility] 2017-01-16 11:48:40 2017-01-16 11:48:40 Outpatient [facility] [id number] [facility] 2016-12-03 11:53:00 2016-12-03 11:53:00 Emergency [facility] [id number] [facility] 2016-10-24 14:19:16 2016-10-24 14:19:16 Outpatient [facility] [id number] [facility] 2016-10-24 14:18:49 2016-10-24 14:18:49 Outpatient [facility] [id number] [facility] 2016-07-24 15:14:23 2016-07-24 15:14:23 Outpatient [facility] [id number] [facility] 2016-07-11 11:21:33 2016-07-11 11:21:33 Outpatient [facility] [id number] [facility] 2016-07-11 07:39:12 2016-07-11 07:39:12 Outpatient [facility] [id number] [facility] 2016-07-11 00:27:22 2016-07-11 00:27:22 Outpatient [facility] [id number] [facility] 2016-07-10 05:24:47 2016-07-10 05:24:47 Emergency [facility] [id number] [facility] Results Test Description Test Time Test Comments Results Result Comments Source ANKLE 3VIEW LT - HOPD 2020-04-26 23:11:00 [place] [address] Patient Name: WILLIE IQBAL MR #: [id number] : 1960 Age/Sex: 59/M Req #: [id number] Adm Physician: Ordered by: HOMERO BARNHART Report #: [id number] Location: [facility] Room/Bed: Procedure: [id number] HOPD/ANKLE 3VIEW LT - HOPD Exam Date: 04/26/20 Exam Time: 2150 REPORT STATUS: Signed LEFT ANKLE 3VIEW LT - HOPD - 3 views HISTORY: Pain. COMPARISON: None available. FINDINGS: Bones: Apparent cortical discontinuity at the posterior calcaneus. Otherwise, no acute fracture of the ankle. Osseous alignment is within normal limits. Joints: The joint spaces are well-maintained. Soft tissues: Vascular calcifications. IMPRESSION: Apparent cortical discontinuity at the posterior calcaneus. Findings could represent old trauma, but acute fracture is not excluded. Correlate for point tenderness to determine need for CT evaluation. Otherwise, no acute fracture of the ankle. Signed by: Ryan Bautista MD on 04/27/2020 12:06 AM Dictated By: RYAN BAUTISTA MD 0006 Transcribed By: HELIO on 04/27/205 COPY TO: HOMERO BARNHART 2D Echo W/Doppler(CW/PW/Color) 2020-03-17 16:00:01 Ejection FractionSLEH ECHO HEARTLAB MKPETERSON CPACSInterface, External Ris In - 03/17/2020 4:00 PM CDTTransthoracic Echocardiography Report (TTE) Demographics Patient Name ISRAEL ALEMAN, Date of Study 03/17/2020 WILLIE Gender Male Visit Number [id number] Race Unknown Room Number Number Date of 1960 Referring Physician Maritza Matthews Age 59 year(s) Theatre Director Tamika Pizarro Interpreting Physician SOCORRO March Procedure Type of Study TTE procedure:2DECHO W DOPPLER(CW/PW/COLOR) (Routine) Indications:Pre-surgical evaluation of organ transplant.Clinical HistoryAfib, CMP, Dm, ESRD, HLD, HTN, L/R Cath (03/19/17)Contrast Medium: New Item.Height: 63 inches Weight: 68.95 kg (152 lbs) BSA: 1.72 m^2 BMI: 26.93 kg/m^2HR: 84 bpm BP: 178/84 mmHg Summary 1. [...] regurgitation. Estimated peak systolic PA pressure is 45- 50 mmHg (mild pulmonary hypertension) . Pulmonic Valve Normal PV structure and function by limited views a nd Doppler. Aorta Aortic root size (SInus of [...] Velocity: 2.99 m/s TR Gradient: 35.87 mmHg [facility] U/S, ABDOMINAL, COMPLETE 2020-03-17 15:50:00 Assess for acqu ired renal cystic diseaseReason for Exam:->pre transplant evaluation for kidney transplant FINAL REPORT TECHNIQUE: Grayscale ultrasound of the abdomen. INDICATION: 59-year-old man for renal transplant evaluation. COMPARISON: Abdomen ultrasound 12/25/2016. FINDINGS: MIDLINE VASCULATURE: Visualized inferior vena cava is patent. Main portal vein is patent. Maximum visualized aortic diameter is 2.3 cm. LIVER: Liver is normal in size and echogenicity with smooth contour. No focal lesion. BILIARY:Gallbladder: No gallstones. 0.4 cm polyp in the gallbladder, not clearly visualized on prior exam. No gallbladder wall thickening, pericholecystic fluid, or distention. Reported negative sonographic Monk sign.Common bile duct measures 0.5 cm, within normal [...] cortical scarring in the right interpolar region. IMPRESSION:No sonographically evident renal mass or cyst. 0.4 cm gallbladder polyp. Given its small size, no follow-up imaging recommended. Signed: Monet Wu MDReport Verified Date/Time: 03/17/2020 15:50:30 Reading Location: [address] Radiology Reading Room abdomen complete 2020-03-17 15:50:00 Interfac e, External Ris In - 03/17/2020 3:52 PM CDTFINAL REPORT TECHNIQUE: Grayscale ultrasound of the abdomen. INDICATION: 59-year-old man for renal transplant evaluation. COMPARISON: Abdomen ultrasound 12/25/2016. FINDINGS: MIDLINE VASCULATURE: Visualized inferior vena cava is patent. Main portal vein is patent. Maximum visualized aortic diameter is 2.3 cm. LIVER: Liver is normal in size and echogenicity with smooth contour. No focal lesion. BILIARY:Gallbladder: No gallstones. 0.4 cm polyp in the gallbladder, not clearly visualized on prior exam. No gallbladder wall thickening, pericholecystic fluid, or distention. Reported negative sonographic Monk sign.Common bile duct measures 0.5 cm, within normal [...] cortical scarring in the right interpolar region. IMPRESSION:No sonographically evident renal mass or cyst. 0.4 cm gallbladder polyp. Given its small size, no follow-up imaging recommended. Signed: Monet Wu MDReport Verified Date/Time: 03/17/2020 15:50:30 Reading Location: [address] Radiology Reading Room [facility] Hemoglobin A1C 2019-10-08 22:03:00 Test Item Hemoglobin A1c (test code = 4548-4) 6.0 % 4.3-6.1 Estimated Average Glucose (test code = 02092147) 126 mg/dL 70-11 0 H Lab Interpretation (test code = 80665-8) Abnormal [facility] [id number] 16:02:00* Test Item Value Reference Range Interpretation Comments Cholesterol (test code = 2093-3) 119.0 mg/dL <=200.0 Triglyceride (test code = 39442092) 105 mg/dL <150 HDL (test code = 2085-9) 37.0 mg/dL See Reference Range Narrative . LDL (test code = 73129-2) 61 mg/dL <100 Op timal: < 100.0 mg/dLNear Optimal: 120-129 mg/dLBorderline: 130-159 mg/dLHigh: 160-189 mg/dLVery High: >=190 mg/dL Patient Fasting? (test code = 90167643) No FABY (test code = FABY) Patient is not fasting. For a triglyceride result greater than 440 mg/dL, consider re-testing when the patient is in a fasting state. [facility] [id number] 16:02:00* Test Item Value Reference Range Interpretation Comments Bilirubin, Total (test code = 2885-2) 0.7 mg/dL 0.2-1.2 Alkaline Phosphatase (test code = 10180180) 157 U/L 34-104 H AST (test code = 58382414) 18 U/L 13-39 Direct Bilirubin (test code = 1968-7) 0.2 mg/dL 0-0.2 ALT (test code = 05543787) 13 U/L 7-52 Albumin (test code = 30943-2) 4.4 g/dL 4.2-5.5 Lab Interpretation (test code = 40294-5) Abnormal [facility] [id number] 10:26:42Brenda Mon MD 10/08/2019 11:03 AMDiabetic Foot Exam was performed at 10/08/2019 10:52 AM. Right foot sensation is normal, right foot pulses are absent, right foot appearance is abnormal. Left foot sensation is normal, left foot pulses are absent, left foot appearance is abnormal. [id number] 15:28:00* Test Item Value Reference Range Interpretation Comments PROSTATE SPECIFIC ANTIGEN (BEAKER) (test code = 844) 0.8 ng/mL 0 .0-4.0 OCCULT BLOOD, [id number] 11:00:00* Test Item Value Reference Range Interpretation Comments FECAL OCCULT BLOOD (BEAKER) (test code = 618) Negative Negative OCCULT BLOOD, [id number] 10:59:00* Test Item Value Reference Range Interpretation Comments FECAL OCCULT BLOOD (BEAKER) (test code = 618) Negative Negative CBC W/PLT COUNT & AUTO [id number] 12:36:00* Test Item Value Reference Range Interpretation Comments WHITE BLOOD CELL COUNT (BEAKER) (test code = 775) 7.9 K/ L 4.0- 10.0 RED BLOOD CELL COUNT (BEAKER) (test code = 761) 4.42 M/ L 4.20-5 .80 HEMOGLOBIN (BEAKER) (test code = 410) 14.3 GM/DL 13.0-16.8 HEMATOCRIT (BEAKER) (test code = 411) 41.5 % 40.0-50.0 MEAN CORPUSCULAR VOLUME (BEAKER) (test code = 753) 93.8 fL 82. 0-98.0 MEAN CORPUSCULAR HEMOGLOBIN (BEAKER) (test code = 751) 32.3 pg 27.0-33.0 MEAN CORPUSCULAR HEMOGLOBIN CONC (BEAKER) (test code = 752) 34.4 GM/DL 32.0-36.0 RED CELL DISTRIBUTION WIDTH (BEAKER) (test code = 412) 14.8 % 10.3-14.2 H PLATELET COUNT (BEAKER) (test code = 756) 237 K/CU MM 150-430 MEAN PLATELET VOLUME (BEAKER) (test code = 754) 7.2 fL 6.5-10 .5 NUCLEATED RED BLOOD CELLS (BEAKER) (test code = 413) 0 /100 WBC 0 -0 NEUTROPHILS RELATIVE PERCENT (BEAKER) (test code = 429) 67 % LYMPHOCYTES RELATIVE PERCENT (BEAKER) (test code = 430) 24 % MONOCYTES RELATIVE PERCENT (BEAKER) (test code = 431) 6 % EOSINOPHILS RELATIVE PERCENT (BEAKER) (test code = 432) 3 % BASOPHILS RELATIVE PERCENT (BEAKER) (test code = 437) 1 % NEUTROPHILS ABSOLUTE COUNT (BEAKER) (test code = 670) 5.30 K/ L 1.80-8.00 LYMPHOCYTES ABSOLUTE COUNT (BEAKER) (test code = 414) 1.87 K/ L 1.48-4.50 MONOCYTES ABSOLUTE COUNT (BEAKER) (test code = 415) 0.49 K/ L 0. 00-1.30 EOSINOPHILS ABSOLUTE COUNT (BEAKER) (test code = 416) 0.21 K/ L 0.00-0.50 BASOPHILS ABSOLUTE COUNT (BEAKER) (test code = 417) 0.05 K/ L 0. 00-0.20 0.00BASIC METABOLIC [id number] 12:07:00* Test Item Value Reference Range Interpretation Comments SODIUM (BEAKER) (test code = 381) 136 meq/L 136-145 POTASSIUM (BEAKER) (test code = 379) 5.7 meq/L 3.5-5.1 H CHLORIDE (BEAKER) (test code = 382) 100 meq/L 98-107 CO2 (BEAKER) (test code = 355) 22 meq/L 22-29 BLOOD UREA NITROGEN (BEAKER) (test code = 354) 30 mg/dL 7-21 H CREATININE (BEAKER) (test code = 358) 8.34 mg/dL 0.57-1.25 H GLUCOSE RANDOM (BEAKER) (test code = 652) 94 mg/dL 70-105 CALCIUM (BEAKER) (test code = 697) 8.7 mg/dL 8.4-10.2 EGFR (BEAKER) (test code = 1092) 7 mL/min/1.73 sq m ESTIMATED GFR IS NOT ACCURATE CREATININE CLEARANCE IN PREDICTING GLOMERULAR FILTRATION RATE. ESTIMATED GFR IS NOT APPLICABLE FOR DIALYSIS PATIENTS. PT/[id number] 11:55:00* Test Item Value Reference Range Interpretation Comments PROTIME (BEAKER) (test code = 759) 12.2 seconds 11.7-14.7 INR (BEAKER) (test code = 370) 0.9 <=5.9 PARTIAL THROMBOPLASTIN TIME (BEAKER) (test code = 760) 31.1 seconds 22.5-36.0 RECOMMENDED COUMADIN/WARFARIN INR THERAPY RANGESSTANDARD DOSE: 2.0 - 3.0 Inclu kamran: PROPHYLAXIS for venous thrombosis, systemic embolization; TREATMENT for lizabeth ous thrombosis and/or pulmonary embolus.HIGH RISK: Target INR is 2.5-3.5 for pat ients with mechanical heart valves.TISSUE [id number] 14:33:00Surgical Pathology Report Case: [id number] Authorizing Provider: Brent Lai Collected: 02/04/2017 1057 MD Maggy Ordering Location: [facility] Endoscopy Received: 02/04/2017 1543 Services Pathologist: Zainab Edgar MD Specimens: A) - Polyp, Colon - Cecum, cold forceps polypectomy B) - Polyp, Colon - H epatic Flexure, cold forceps polypectomy C) - Polyp, Colon - Rectum, cold forceps polypectomy A. CECAL POLYP, POLYPECTOMY: - MUCOSAL TAG WITH LYMPHOID AGGREGATEB. HEPATIC FLEXURE POLYP, POLYPECTOMY: - TUBULAR ADENOMAC. RECTAL POLYP, POLYPECTOMY: - MUCOSAL TAG [id number] x 3Colon cancer screeningA. Cecal colon polypB. Hepatic flexure co eric polyp C. Rectum colon polypSpecimen is received in three containers of forma shauna all labeled with the patient's information.Specimen A: Labeled "cecum colon polyp" consists of a 0.5 cm ragged fragment of mcknight tissue submitted in A1.Specim en B: Labeled "hepatic flexure colon polyp" consists of a 0.1 cm fragment of mcknight tissue submitted entirely in B1.Specimen C: Labeled "rectum colon polyp" consis ts of a 0.3 cm fragment of mcknight tissue submitted in C1. CG/ewPerformed.POTASSIUM- STAT [id number] 10:47:00* Test Item Value Reference Range Interpretation Comments POTASSIUM (BEAKER) (test code = 379) 6.3 meq/L 3.6-5.5 [id number] 10:30:00* Test Item Value Reference Range Interpretation Comments POC-POTASSIUM (BEAKER) (test code = 1540) 6.2 meq/L 3.6-5.5 HH TESTED AT [facility] [address] [place] [address] POCT-GLUCOSE [id number] 10:28:00* Test Item Value Reference Range Interpretation Comments POC-GLUCOSE METER (BEAKER) (test code = 1538) 95 mg/dL 70-110 TESTED AT [address] [address] FLOW PRA CLASS I AND [id number] 13:28:00* Test Item Value Reference Range Interpretation Comments DATE OF SERUM (BEAKER) (test code = 2289) [id number] SERUM # (BEAKER) (test code = 2290) [id number] FLOW PRA CLASS I AND II (test code = 2421) See Scanned Report HLA [id number] 15:30:00* Test Item Value Reference Range Interpretation Comments HLA RESULT (BEAKER) (test code = 2311) See Scanned Report HLA-A AG1 (BEAKER) (test code = 2521) HLA-A AG2 (BEAKER) (test code = 2522) HLA-B AG1 (BEAKER) (test code = 2523) HLA-B AG2 (BEAKER) (test code = 2524) HLA-C AG1 (BEAKER) (test code = 2525) HLA-C AG2 (BEAKER) (test code = 2526) HLA-DR AG1 (BEAKER) (test code = 2518) HLA-DR AG2 (BEAKER) (test code = 2519) HLA-DQ AG1 (BEAKER) (test code = 2514) HLA-DQ AG2 (BEAKER) (test code = 2515) HLA-DRW (BEAKER) (test code = 2583) PROTHROMBIN GENE [id number] 18:42:00* Test Item Value Reference Range Interpretation Comments PROTHROMBIN/FACTOR II (BEAKER) (test code = 2163) Nega tive for the [id number] (Prothrombin/Factor II) mutation. [id number](BEAKER) (test code = 2601) Khanh Harrell M.D. (electonic signature) This test is a genotyping assay which evaluates the DNA sequence at position 202 10 of the prothrombin (Factor II) gene. A region of the prothrombin (Factor II) gene is amplified by polymerase chain reaction followed by fluorescent monitorin g of a specific pair of hybridized probes. Since genetic variation and other fac tors can affect the accuracy of direct mutation testing, these results should be interpreted in light of clinical and familial data.This test was developed and its performance characteristics determined by the [facility] Path ology Department, Section of Molecular Pathology. It has not been cleared or braulio roved by the U.S. Food and Drug Administration (FDA), since FDA approval is not required for clinical use of the test. Validation was done as required by the inical Laboratory Improvement Amendments of 1988.FACTOR 5 LEIDEN PCR (THROMBOTIC RISK)2016-12-25 18:39:00* Test Item Value Reference Range Interpretation Comments FACTOR V LEIDEN (F2G) (test code = 718) Negative fo r the R506Q (Factor V Leiden) mutation [id number] (F2G) (test code = 2599) Khanh Harrell M.D. (electonic signature) This test is a genotyping assay which evaluates the DNA sequence corresponding t o Codon 506 of the Factor V Gene. A region of the Factor V Gene is amplified by polymerase chain reaction followed by fluorescent monitoring of a specific pair of hybridized probes. Since genetic variation and other factors can affect the a ccuracy of direct mutation testing, these results should be interpreted in light of clinical and familial data.This test was developed and its performance izzy cteristics determined by the [facility] Pathology Department, Section of Molecular Pathology. It has not been cleared or approved by the U.S. Food and Drug Administration (FDA), since FDA approval is not required for clin ical use of the test. Validation was done as required by the Clinical Laboratory Improvement Amendments of 1988.URINE [id number] 11:14:00* Test Item Value Reference Range Interpretation Comments CULTURE (F2G) (test code = 1095) ENTEROCOCCUS SPECIES A 20-29,000 col/mL Enterococcus species Ampicillin (test code = 26) S Linezolid (test code = 40) S Nitrofurantoin (test code = 23) S Tetracycline (test code = 2) R Vancomycin (test code = 13) S CULTURE (BEAKER) (test code = 132030) A >100,000 col/mL Beta-hemolytic streptococcus not group A or B, by serological grouping CYTOMEGALOVIRUS ANTIBODY, [id number] 19:05:00* Test Item Value Reference Range Interpretation Comments CYTOMEGALOVIRUS IGG ANTIBODY (HOLLEYAKER) (test code = 790) Positive CYTOMEGALOVIRUS ANTIBODY, [id number] 19:05:00* Test Item Value Reference Range Interpretation Comments CYTOMEGALOVIRUS IGM ANTIBODY (HOLLEYAKER) (test code = 816) Negative EBV-VCA ANTIBODY, [id number] 19:05:00* Test Item Value Reference Range Interpretation Comments JAIMEE-STRICK[place] VCA IGG (HOLLEYAKER) (test code = 983) Positive EBV-VCA ANTIBODY, [id number] 19:05:00* Test Item Value Reference Range Interpretation Comments JAIMEE-[place] VCA IGM (HOLLEYAKER) (test code = 984) Negative [id number] 11:39:00* Test Item Value Reference Range Interpretation Comments RPR SCREEN (SUDHA) (test code = 420) Nonreactive Nonreactive ANTITHROMBIN [id number] 11:31:00* Test Item Value Reference Range Interpretation Comments ANTITHROMBIN III ACTIVITY (SUDHA) (test code = 711) 81.0 % 8 0.0-120.0 Effective 01/05/2014: Reference Range Change-Adult onlyNew: 80.0-120.0 Previous: 90.0-128.0PROTEIN C [id number] 11:31:00* Test Item Value Reference Range Interpretation Comments PROTEIN C ACTIVITY (SUDHA) (test code = 582) 82.0 % 70.0-130 .0 Effective 01/05/2014: Reference Range Change-Adult onlyNew: 70.0-130.0 Previous: 70.0-140.0VARICELLA ZOSTER ANTIBODY, [id number] 09:45:00* Test Item Value Reference Range Interpretation Comments VARICELLA ZOSTER IGG (AL) (SUDHA) (test code = 3197) 7.7 Al VARICELLA ZOSTER RESULT INTERPRETATIONS: <=0.8 Al Nonreactive: Presumed non-immune to VZV 0.9-1.0 Al Equivocal >=1.1 Al Reactive: Presumed immune to VZVHLA TESTING (EXTERNAL)2016-12-18 20:00:00* Test Item Value Reference Range Interpretation Comments HLA TESTING (EXTERNAL) (test code = 3209) See Separate Report [id number] 15:28:00* Test Item Value Reference Range Interpretation Comments PROTIME (BEAKER) (test code = 759) 13.9 seconds 11.7-14.7 INR (BEAKER) (test code = 370) 1.1 <=5.9 PARTIAL THROMBOPLASTIN TIME (BEAKER) (test code = 760) 36.2 seconds 22.5-36.0 H RECOMMENDED COUMADIN/WARFARIN INR THERAPY RANGESSTANDARD DOSE: 2.0 - 3.0 Inclu kamran: PROPHYLAXIS for venous thrombosis, systemic embolization; TREATMENT for lizabeth ous thrombosis and/or pulmonary embolus.HIGH RISK: Target INR is 2.5-3.5 for pat ients with mechanical heart valves.PROTHROMBIN [id number] 15:27:00* Test Item Value Reference Range Interpretation Comments PROTIME (BEAKER) (test code = 759) 13.9 seconds 11.7-14.7 INR (BEAKER) (test code = 370) 1.1 <=5.9 RECOMMENDED COUMADIN/WARFARIN INR THERAPY RANGESSTANDARD DOSE: 2.0 - 3.0 Inclu kamran: PROPHYLAXIS for venous thrombosis, systemic embolization; TREATMENT for lizabeth ous thrombosis and/or pulmonary embolus.HIGH RISK: Target INR is 2.5-3.5 for pat ients with mechanical heart valves.HEPATITIS B SURFACE [id number] 15:07:00* Test Item Value Reference Range Interpretation Comments HEPATITIS B SURFACE ANTIGEN (2) (BEAKER) (test code = 2585) Nonreactive Nonreactive HEPATITIS B CORE ANTIBODY, [id number] 15:07:00* Test Item Value Reference Range Interpretation Comments HEPATITIS B CORE IGM ANTIBODY (BEAKER) (test code = 645) Non reactive Nonreactive HEPATITIS C [id number] 15:07:00* Test Item Value Reference Range Interpretation Comments HEPATITIS C ANTIBODY (BEAKER) (test code = 367) Nonreactive Nonrea ctive HIV-1 ANTIGEN WITH HIV-1/2 [id number] 15:07:00* Test Item Value Reference Range Interpretation Comments HIV-1 ANTIGEN WITH HIV 1\\T\\2 ANTIBODY (2) (BEAKER) (te st code = 2586) Nonreactive Nonreactive HEPATITIS B SURFACE [id number] 15:07:00* Test Item Value Reference Range Interpretation Comments HEPATITIS B SURFACE ANTIBODY (BEAKER) (test code = 647) < mIU/mL <8.0 [id number] 15:04:00* Test Item Value Reference Range Interpretation Comments PROSTATE SPECIFIC ANTIGEN (BEAKER) (test code = 844) 0.7 ng/mL 0 .0-4.0 HEMOGLOBIN [id number] 14:55:00* Test Item Value Reference Range Interpretation Comments HEMOGLOBIN A1C (BEAKER) (test code = 368) 4.7 % 4.3-6.1 URINALYSIS W/ [id number] 14:53:00* Test Item Value Reference Range Interpretation Comments COLOR (BEAKER) (test code = 470) Yellow CLARITY (BEAKER) (test code = 469) Clear SPECIFIC GRAVITY UA (BEAKER) (test code = 468) 1.011 1.001-1 .035 PH UA (BEAKER) (test code = 467) 8.0 5.0-8.0 PROTEIN UA (BEAKER) (test code = 464) >600 mg/dL Negative A GLUCOSE UA (BEAKER) (test code = 365) 300 mg/dL Negative A KETONES UA (BEAKER) (test code = 371) Negative Negative BILIRUBIN UA (BEAKER) (test code = 462) Negative Negative BLOOD UA (BEAKER) (test code = 461) Trace Negative A NITRITE UA (BEAKER) (test code = 465) Negative Negative LEUKOCYTE ESTERASE UA (BEAKER) (test code = 466) Negative Negat ha UROBILINOGEN UA (BEAKER) (test code = 463) 0.2 mg/dL 0.2-1.0 RBC UA (BEAKER) (test code = 519) 3 /HPF WBC UA (BEAKER) (test code = 520) 1 /HPF BACTERIA (BEAKER) (test code = 517) Rare MUCUS (BEAKER) (test code = 1574) Rare HYALINE CASTS (BEAKER) (test code = 514) 3 /LPF SOURCE(BEAKER) (test code = 7415) PTH, [id number] 14:50:00* Test Item Value Reference Range Interpretation Comments PARATHYROID HORMONE INTACT (BEAKER) (test code = 577) 292.9 pg/mL 8.5-72.5 H Effective 07/20/2014: Reference Range ChangeNew: 8.5-72.5 Previous: 15.0-90.0 COMPREHENSIVE METABOLIC [id number] 14:48:00* Test Item Value Reference Range Interpretation Comments TOTAL PROTEIN (BEAKER) (test code = 770) 8.6 gm/dL 6.0-8.3 H ALBUMIN (BEAKER) (test code = 1145) 4.6 g/dL 3.5-5.0 ALKALINE PHOSPHATASE (BEAKER) (test code = 346) 126 U/L 40-150 BILIRUBIN TOTAL (BEAKER) (test code = 377) 0.7 mg/dL 0.2-1.2 SODIUM (BEAKER) (test code = 381) 141 meq/L 136-145 POTASSIUM (BEAKER) (test code = 379) 4.3 meq/L 3.5-5.1 CHLORIDE (BEAKER) (test code = 382) 99 meq/L 98-107 CO2 (BEAKER) (test code = 355) 24 meq/L 22-29 BLOOD UREA NITROGEN (BEAKER) (test code = 354) 31 mg/dL 7-21 H CREATININE (BEAKER) (test code = 358) 7.12 mg/dL 0.57-1.25 H GLUCOSE RANDOM (BEAKER) (test code = 652) 90 mg/dL 70-105 CALCIUM (BEAKER) (test code = 697) 8.2 mg/dL 8.4-10.2 L AST (SGOT) (BEAKER) (test code = 353) 21 U/L 5-34 ALT (SGPT) (BEAKER) (test code = 347) 23 U/L 6-55 EGFR (BEAKER) (test code = 1092) 8 mL/min/1.73 sq m ESTIMATED GFR IS NOT ACCURATE CREATININE CLEARANCE IN PREDICTING GLOMERULAR FILTRATION RATE. ESTIMATED GFR IS NOT APPLICABLE FOR DIALYSIS PATIENTS. URIC [id number] 14:45:00* Test Item Value Reference Range Interpretation Comments URIC ACID (BEAKER) (test code = 773) 4.1 mg/dL 2.6-7.2 [id number] 14:45:00* Test Item Value Reference Range Interpretation Comments PHOSPHORUS (BEAKER) (test code = 604) 5.5 mg/dL 2.3-4.7 H LIPID [id number] 14:45:00* Test Item Value Reference Range Interpretation Comments TRIGLYCERIDES (BEAKER) (test code = 540) 163 mg/dL CHOLESTEROL (BEAKER) (test code = 631) 182 mg/dL HDL CHOLESTEROL (BEAKER) (test code = 976) 42 mg/dL LDL CHOLESTEROL CALCULATED (BEAKER) (test code = 633) 107 mg/dL Triglyceride Reference Range: Low Risk <150 Borderline 150-199 High Risk 200-499 Very High Risk >=500Cholesterol Reference Range: Low Risk <200 Borderline 200-239 High Risk >240HDL Cholesterol Reference Range: Low Risk >=60 High Risk <40LDL Cholesterol Reference Range: Optimal <100 Near Optimal 100-129 Borderline 130-159 High 160-189 Very High >=190 GAMMA GLUTAMYL TRANSFERASE (GGT)2016-12-18 14:45:00* Test Item Value Reference Range Interpretation Comments GAMMA GLUTAMYL TRANSFERASE (BEAKER) (test code = 364) 48 U/L 9-64 LACTATE DEHYDROGENASE (LDH)2016-12-18 14:45:00* Test Item Value Reference Range Interpretation Comments LACTATE DEHYDROGENASE (BEAKER) (test code = 635) 372 U/L 125-2 20 H CBC W/PLT COUNT & AUTO [id number] 14:33:00* Test Item Value Reference Range Interpretation Comments WHITE BLOOD CELL COUNT (BEAKER) (test code = 775) 7.2 K/ L 4.0- 10.0 RED BLOOD CELL COUNT (BEAKER) (test code = 761) 3.91 M/ L 4.20-5 .80 L HEMOGLOBIN (BEAKER) (test code = 410) 12.5 GM/DL 13.0-16.8 L HEMATOCRIT (BEAKER) (test code = 411) 37.5 % 40.0-50.0 L MEAN CORPUSCULAR VOLUME (BEAKER) (test code = 753) 95.9 fL 82. 0-98.0 MEAN CORPUSCULAR HEMOGLOBIN (BEAKER) (test code = 751) 32.0 pg 27.0-33.0 MEAN CORPUSCULAR HEMOGLOBIN CONC (BEAKER) (test code = 752) 33.4 GM/DL 32.0-36.0 RED CELL DISTRIBUTION WIDTH (BEAKER) (test code = 412) 14.7 % 10.3-14.2 H PLATELET COUNT (BEAKER) (test code = 756) 335 K/CU MM 150-430 MEAN PLATELET VOLUME (BEAKER) (test code = 754) 7.6 fL 6.5-10 .5 NUCLEATED RED BLOOD CELLS (BEAKER) (test code = 413) 0 /100 WBC 0 -0 NEUTROPHILS RELATIVE PERCENT (BEAKER) (test code = 429) 73 % LYMPHOCYTES RELATIVE PERCENT (BEAKER) (test code = 430) 18 % MONOCYTES RELATIVE PERCENT (BEAKER) (test code = 431) 5 % EOSINOPHILS RELATIVE PERCENT (BEAKER) (test code = 432) 3 % BASOPHILS RELATIVE PERCENT (BEAKER) (test code = 437) 1 % NEUTROPHILS ABSOLUTE COUNT (BEAKER) (test code = 670) 5.28 K/ L 1.80-8.00 LYMPHOCYTES ABSOLUTE COUNT (BEAKER) (test code = 414) 1.28 K/ L 1.48-4.50 L MONOCYTES ABSOLUTE COUNT (BEAKER) (test code = 415) 0.36 K/ L 0. 00-1.30 EOSINOPHILS ABSOLUTE COUNT (BEAKER) (test code = 416) 0.25 K/ L 0.00-0.50 BASOPHILS ABSOLUTE COUNT (BEAKER) (test code = 417) 0.06 K/ L 0. 00-0.20 0.00
== END 2020-04-26 23:30 | disposition home or self-care (01) ==
LOC: FSED 20:25
DX: S93.402A Sprain of unspecified ligament of left ankle, initial encounter (principal); S93.602A Unspecified sprain of left foot, initial encounter; X50.1XXA Overexertion from prolonged static or awkward postures, initial encounter; Y93.01 Activity, walking, marching and hiking; Y92.89 Other specified places as the place of occurrence of the external cause
CPT/HCPCS: 99283

== ENCOUNTER 2020-11-16 21:51 | Emergency (ER) | payer MEDICARE ==
[~2020-11-16] VITALS: Ht 165.1 cm; Wt 70.8 kg
[~2020-11-16 21:51] MED LIST: IBUPROFEN600 MG PO; ULTRAM50 MG PO
[2020-11-16] MEDS ORDERED: CLONIDINE HCL 0.1 MG TAB PO ONE (22:15)
[2020-11-16] MEDS ORDERED: ONDANSETRON HCL 4 MG ORAL DISINTEGRATING TAB PO ONE (22:15)
[2020-11-16] MEDS ORDERED: IBUPROFEN 200 MG TAB PO ONE (22:15)
[2020-11-16] MEDS ORDERED: HYDROCODONE/APAP 5MG-325MG TAB PO ONE (22:15)
[2020-11-16] MEDS ORDERED: IBUPROFEN IB200 MG PO (22:23)
[2020-11-16] MEDS ORDERED: ULTRAM 50MG50 MG PO (22:23)
[2020-11-16] MEDS ORDERED: HYDROCODONE/APAP 5MG-325MG TAB ONE (22:37)
[2020-11-16] MEDS ORDERED: ONDANSETRON HCL 4 MG ORAL DISINTEGRATING TAB ONE (22:38)
[2020-11-16] MEDS ORDERED: IBUPROFEN 600 MG TAB ONE (22:38)
[2020-11-16] MEDS ORDERED: CLONIDINE HCL 0.1 MG TAB ONE (22:38)
== END 2020-11-17 00:10 | disposition home or self-care (01) ==
LOC: FSED 22:06
DX: S93.601A Unspecified sprain of right foot, initial encounter (principal); W19.XXXA Unspecified fall, initial encounter; I12.0 Hypertensive chronic kidney disease with stage 5 chronic kidney disease or end stage renal disease; E11.22 Type 2 diabetes mellitus with diabetic chronic kidney disease; N18.6 End stage renal disease; I25.2 Old myocardial infarction; Z95.810 Presence of automatic (implantable) cardiac defibrillator
CPT/HCPCS: 29515; 73630; 99283; Q0162